=== PATIENT | female | born 1995 | race Caucasian/White ===

== ENCOUNTER 2020-06-05 11:32 | Outpatient (CLI) | payer OTHER, SELFPAY ==
[~2020-06-05] VITALS: Ht 157.5 cm; Wt 51.9 kg
[2020-06-05 11:50] VITALS: BP 109/62
[2020-06-05] MEDS ORDERED: PRENTAB9 PO (11:59)
== END 2020-06-05 13:10 | disposition home or self-care (01) ==
LOC: M LDO 11:32
PROVIDERS: ATTEND Registered Nurse
DX: O44.43 Low lying placenta NOS or without hemorrhage, third trimester (principal); Z3A.30 30 weeks gestation of pregnancy
CPT/HCPCS: 59025; G0378; G0463

== ENCOUNTER 2020-08-03 15:02 | Inpatient (IN) | payer OTHER ==
[2020-08-03] VITALS (14 sets, daily range): BP systolic 100–137; BP diastolic 53–79
[~2020-08-03] VITALS: Ht 157.5 cm; Wt 53.0 kg
[~2020-08-03 15:02] MED LIST: PRENTAB9 PO
[2020-08-03 16:41] LABS: HEMATOCRIT 32.6 % (36.0-47.0); HEMOGLOBIN 10.7 g/dl (12.0-15.5); MEAN CORPUSCULAR HEMOGLOBIN 29.2 pg (27.0-33.0); MEAN CORPUSCULAR HGB CONC 32.8 g/dl (32.0-36.5); MEAN CORPUSCULAR VOLUME 88.8 fl (80.0-96.0); PLATELET COUNT, AUTOMATED 240 10^3/uL (150-450); RED BLOOD COUNT 3.67 10^6/uL (4.00-5.40); WHITE BLOOD COUNT 9.1 10^3/uL (4.0-10.0)
--- NOTE | 2020-08-03 17:14 | HPEPDOC ---
Obstetrical History & Physical General Date of Admission History of Present Illness 24yo at 38+4wks presenting for c/o gush of clear fluid upon waking up at 1230pm today and has continued to leak clear fluid since. Denies DFM, VB or ctx's. Chief Complaint: LOF, term Information Provided By: Patient Care Care: Good Care Dating Final EDC: Aug 13, 2020 Final EDC for Daily Update: Aug 13, 2020 Final EDC by: 1st trimester (US) ([id number]) Antepartum Course Diagnos(e)s Low-lying placenta Tobacco use complicating Low BMI with insufficient weight gain in Height (inches): 62 Pre- weight (lbs.): 97 Admission Weight (lbs.): 116 Change in Weight (lbs.): 19 Past Medical History Past Obstetrical History : Past Obstetrical History: Multigravida ( - x3 with pelvis proven to 1iyu8pi) [employer] History: No pertinent history Past Medical History Medical History Denies Surgical History: Gallbladder (2017) Family History Significant Family History: Diabetes Social History Marital Status: Family situation: Spouse/partner home Psychosocial History: No pertinent psych hx * Smoker: current smoker (1/2 PPD) Alcohol: Denies Drugs: denies Abuse Violence Screening Have you been hit/kicked/slapp: No Have you been sexually assault: No Imunizations Tdap status: current ([id number]) Allergies Coded Allergies: latex (Verified Allergy, Unknown, HIVES, 08/03/20) Medications Scheduled No.137/Iron/Folic Acd ( Vitamin Tablet) 1 Each Tablet, 1 TAB PO DAILY Physical Examination Physical Examination GENERAL: Alert and oriented times three. ABDOMEN: Gravid and non-tender to touch. FETUS: Is vertex (VTX) by sterile vaginal examination (SVE), fetus is vertex (VTX) by Esdras. CARDS: well-perfused RESP: no exaggerated respiratory effort appreciated : NEFG, pooling of clear fluid, SVE 2/50/-2 EXTREMITIES: No edema. Laboratory Data 24H LABS Laboratory Tests 2 08/03/20 16:30: Nucleated Red Blood Cells % (auto) 0.0 CBC/BMP Laboratory Tests 08/03/20 16:30 Urine Culture: No Growth Pertinent Laboratoy Data Blood Type: A+ RBC Antibody Screen: Negative HIV: Negative Hepatitis B: Negative Rapid Plasma Reagin: Nonreactive Rubella: Immune Varicella: Immune Chlamydia/Gonorrhea: Negative Group B Streptococcus: Negative Glucose Tolerance Test: 104 Anatomy Ultrasound Placenta Location: Other (posterior/lateral/anterior with low lying 1.4cm from cervical os) Normal Anatomy: Yes Vaginal Examination Dilation: 2cm Effacement: 50% Station: -2 Cervical Consistency: Soft Cervical Position: Posterior Presentation: Cephalic presentation Assessment Heart Rate (FHR): 140 Variability: Moderate Accelerations: Positive Decelerations: None Tocometer Contractions: Yes Frequency: greater than 15 min/apart Multi-drug resistant Organism: No history of MDRO Assessment/Plan Assessment 24yo at 38+4wks presenting for c/o LOF and found to have PROM. Normotensive, afebrile, NST reactive, tocometry with rare ctx's patient not feeling. GBS neg. EFW 2700g. SVE 2/50/-2 Plan Admit and orient. Cosmetology Educator and consent. Diet: regular until epidual then clears Group B Streptococcus (GBS) negative. Labs and intravenous (IV) per unit protocol. Counseled on cytotec, pitocin and augmentation of labor (IOL). Lactated Ringers (LR): at 125mL/hr. Cytotec 50mcg PO q6h x2 doses then start pitocin Anticipate normal spontaneous delivery (). C-S as appropriate. CATHERINE STARK DO Aug 03, 2020 17:14
[2020-08-03] MEDS ORDERED: OXYTOCIN 30 UNITS IN 0.9% NaCl 500ML IV BAG (J2590) As Ordered ONE (19:59)
--- NOTE | 2020-08-03 20:57 | DNPDOC ---
[facility] Delivery Note Delivery Note DATE OF DELIVERY: 08/03/2020 PREDELIVERY DIAGNOSIS: 38+4/7 weeks' gestation and labor. POST DELIVERY DIAGNOSIS: Delivered. PROCEDURE: Spontaneous vaginal delivery. AU PAIR: Dr. Catherine Stark ANESTHESIA: None ESTIMATED BLOOD LOSS: 150mL. FINDINGS: 6 pound 0 ounce 2730g female infant, Score 8/9, nuchal cord times x2. DELIVERY SUMMARY: Patient made rapid cervical change to c/c/+3. With excellent maternal effort, spontaneous vaginal delivery of a viable term female infant. Presentation was OA with resitution to LOT with right shoulder anterior position. Anterior shoulder and body delivered without difficulty. Nuchal cord x2 delivered through. No meconium noted. with spontaneous cry on delivery field therefore placed on maternal abdomen and care transferred to Team with placed on maternal abdomen. Pitocin IV bolus initiated. Three vessel cord clamped x2 and cut by FOB after 5 minutes of delayed cord clamping. Third stage spontaneous with intact placenta notable for a succenturiate lobe. Fundal massage revealed firm uterine tone and hemostasis. Inspection revealed no lacerations. EBL 150ml. Mother and stable and bonding upon my leaving the room. CATHERINE STARK DO Aug 03, 2020 20:57
[2020-08-04 05:51] VITALS: BP 115/75
--- NOTE | 2020-08-04 08:02 | IPNPDOC ---
Progress Note Date of Service: Aug 04, 2020 Day#: 1 Progress Note SUBJECT: Evi 24yo G4 now P4 status post uncomplicated spontaneous vaginal delivery doing well day # 1. She has been ambulating. She is tolerating a regular diet. Breast feeding without issue. Reports lochia is decreasing. Patient is ambulating well. Voiding and stooling without difficulty. Reports pain is controlled on oral pain meds. OBJECTIVE: VITAL SIGNS: Within normal limits, afebrile. Alert and oriented times three. RESP: no exaggerated respiratory effort appreciated CARDS: well-perfused Abdomen: Fundus firm at U-2. Soft, NTTP. ASSESSMENT: Evi 24yo G4 now P4 status post uncomplicated spontaneous vaginal delivery doing well day # 1. Vitals within normal limits, afebrile, hemodynamically stable with no evidence of infection. PLAN: 1. Discharge to home tomorrow. 2. Tylenol and Motrin for pain. 3. Encourage breast feeding and ambulation. 4. Desires Nexplanon for contraception 5. Routine PP visit in 6 weeks in clinic. 6. Discussed return precautions at length. VS, I&O, 24H, Jose Rbone Vital Signs/I&O Vital Signs Date Time Temp Pulse Resp B/P (MAP) Pulse Ox O2 Delivery O2 Flow Rate FiO2 08/04/20 05:51 98.1 56 18 115/75 (88) 99 Room Air I&O- Last 24 Hours up to 6 AM 08/04/20 06:00 Output Total 150 ml Balance -150 ml Laboratory Data 24H LABS Laboratory Tests 2 08/03/20 16:30: Nucleated Red Blood Cells % (auto) 0.0 08/03/20 17:18: Serology Scanned Report Hepatitis B Testing CBC/BMP Laboratory Tests 08/03/20 16:30 CATHERINE STARK DO Aug 04, 2020 08:02
[2020-08-04 18:00] VITALS: BP 104/57
[2020-08-05] MEDS ORDERED: ACET-683 PO (06:56)
[2020-08-05] MEDS ORDERED: IBUP80TA PO (06:56)
[2020-08-05 07:06] VITALS: BP 113/76
--- NOTE | 2020-08-05 07:06 | DS.PDOC ---
Discharge Summary General Date of Admission Aug 03, 2020 at 16:57 Date of Discharge Aug 05, 2020 Discharge Summary HOSPITAL COURSE: Ms. Jordan is a 24 yo G4 now p4 who underwent an uncomplicated on [id number] after being admitted for active labor. Her course has been unremarkable. On her day of discharge she met all appropriate discharge criteria. She was ambulating, voiding, tolerating a regular diet, had no pain, and minimal lochia. DISCHARGE MEDICATIONS: Please see below. ALLERGIES: Please see below. PHYSICAL EXAMINATION ON DISCHARGE: VITAL SIGNS: Please see below. GENERAL: AAOX3, standing at bedside. Pleasant and conversant. NAD ABDOMINAL EXAMINATION: Fundus firm at U-2. No fundal tenderness EXTREMITIES: No edema PSYCHIATRIC EXAMINATION: Affect appropriate LABORATORY DATA: Please see below. ACTIVITY: Pelvic rest for 6 weeks. DIET: Regular DISCHARGE PLAN: Discharge home DISPOSITION: Discharge home on 05Aug2020. DISCHARGE INSTRUCTIONS: 1. Pelvic rest for 6 weeks. ITEMS TO FOLLOWUP ON ON OUTPATIENT: 1. Call [facility] to schedule a visit for 6 weeks DISCHARGE CONDITION: Stable. TIME SPENT ON DISCHARGE: Greater than 20 minutes. Vital Signs/I&Os Vital Signs Date Time Temp Pulse Resp B/P (MAP) Pulse Ox O2 Delivery O2 Flow Rate FiO2 08/04/20 18:00 98.6 57 16 104/57 (73) 97 Room Air Discharge Medications Scheduled No.137/Iron/Folic Acd ( Vitamin Tablet) 1 Each Tablet, 1 TAB PO DAILY, (Reported) Scheduled PRN Acetaminophen (Acetaminophen) 500 Mg Tablet, 1,000 MG PO Q6HP PRN for PAIN LEVEL 6-10 Ibuprofen (Ibuprofen) 800 Mg Tablet, 800 MG PO Q8HP PRN for PAIN LEVEL 6-10 Allergies Coded Allergies: latex (Verified Allergy, Unknown, HIVES, 08/03/20) TIFFANIE MCMILLAN DO Aug 05, 2020 07:06
== END 2020-08-05 12:30 | disposition home or self-care (01) | DRG 807 ==
LOC: M LDO 15:02 → M LDI 16:57 → M OBS 22:13
PROC: 10E0XZZ Delivery of Products of Conception, External Approach (ICD-10-PCS; principal; 2020-08-03)
DX: O42.02 Full-term premature rupture of membranes, onset of labor within 24 hours of rupture (principal); Z37.0 Single live birth; O99.334 Smoking (tobacco) complicating childbirth; F17.210 Nicotine dependence, cigarettes, uncomplicated; Z3A.38 38 weeks gestation of pregnancy; O43.193 Other malformation of placenta, third trimester; O69.81X0 Labor and delivery complicated by cord around neck, without compression, not applicable or unspecified